=== PATIENT | female | born 1980 | race Caucasian/White ===

== ENCOUNTER 2016-11-08 10:06 | Outpatient (CLI) | payer OTHER | END 2016-11-08 14:00 | disposition home or self-care (01) | LOC: NST SRH 10:06 → OB SRH 10:09 | PROC: 4A0HXCZ Measurement of Products of Conception, Cardiac Rate, External Approach (ICD-10-PCS; principal; 2016-11-08) | DX: Z03.79 Encounter for other suspected maternal and fetal conditions ruled out (principal); Z3A.33 33 weeks gestation of pregnancy ==

== ENCOUNTER 2016-12-20 12:56 | Outpatient (CLI) | payer OTHER ==
--- NOTE | 2016-12-20 15:06 | DIAGNOSTIC IMAGING REPORT ---
PROCEDURE: US OB RE-EVALUATION INDICATION: RE EVAL TECHNIQUE: Rae scale, color and spectral Doppler images of the gravid uterus. COMPARISON: OB ultrasound 09/26/2016 FINDINGS: Single intrauterine with vertex presentation and right posterior placenta. Heart rate 143 bpm. DARLENE measures 13.6 cm (55th percentile) . Cervix not well visualized. Elevated cord ratios between 3.31 and 2.96. BPD 9.4 cm, 38 weeks 2 days; head circumference 33.5 cm, 38 weeks 2 days; abdominal circumference 37.5 cm, 41 weeks 3 days; femur length 7.5 cm, 38 weeks 1 day. Composite age 39 weeks, [place] 12/27/2016. Estimated weight 3953 g plus/minus 593 g (8.71 pounds). IMPRESSION: 1. Single live intrauterine , vertex, 39 weeks 2. [place] 12/27/2016, normal interval growth 3. Estimated weight 3953 g plus/minus 593 g (8.71 pounds). 4. Abdominal circumference 98th percentile 5. Elevated cord ratios.
== END 2016-12-20 23:00 ==
LOC: US SRH 12:56
DX: Z34.93 Encounter for supervision of normal pregnancy, unspecified, third trimester (principal); Z3A.39 39 weeks gestation of pregnancy

== ENCOUNTER 2016-12-21 18:10 | Outpatient (CLI) | payer OTHER | END 2016-12-21 19:05 | disposition home or self-care (01) | LOC: OBC SRH 18:10 → OB SRH 18:12 → OBC SRH 19:05 | PROC: 4A0HXCZ Measurement of Products of Conception, Cardiac Rate, External Approach (ICD-10-PCS; principal; 2016-12-21) | DX: O36.63X0 Maternal care for excessive fetal growth, third trimester, not applicable or unspecified (principal); O26.23 Pregnancy care for patient with recurrent pregnancy loss, third trimester; O09.523 Supervision of elderly multigravida, third trimester; Z3A.39 39 weeks gestation of pregnancy | CPT/HCPCS: 40003; 40016 ==

== ENCOUNTER 2016-12-27 21:13 | Outpatient (CLI) | payer OTHER | END 2016-12-27 22:45 | disposition home or self-care (01) | LOC: OBC SRH 21:13 → OB SRH 21:15 → OBC SRH 22:45 | PROC: 4A0HXCZ Measurement of Products of Conception, Cardiac Rate, External Approach (ICD-10-PCS; principal; 2016-12-27) | DX: O47.1 False labor at or after 37 completed weeks of gestation (principal); Z3A.39 39 weeks gestation of pregnancy ==

== ENCOUNTER 2016-12-30 00:23 | Outpatient (CLI) | payer OTHER ==
[2016-12-31] MEDS ORDERED: PRENATAL1 TAB PO (01:16)
[2016-12-31] MEDS ORDERED: ASPIRIN CHILDRE81 MG PO (01:17)
[2016-12-31] MEDS ORDERED: ACID REDUCER M150 MG PO (01:18)
[2016-12-31] MEDS ORDERED: SERTRALINE HCL25 MG PO (01:18)
== END 2016-12-30 01:50 | disposition home or self-care (01) ==
LOC: OBC SRH 00:23 → OB SRH 00:27 → OBC SRH 01:50
PROC: 4A0HXCZ Measurement of Products of Conception, Cardiac Rate, External Approach (ICD-10-PCS; principal; 2016-12-30)
DX: O47.1 False labor at or after 37 completed weeks of gestation (principal); O48.0 Post-term pregnancy; Z3A.40 40 weeks gestation of pregnancy

== ENCOUNTER 2016-12-30 09:05 | Outpatient (CLI) | payer OTHER ==
[2016-12-31] MEDS ORDERED: PRENATAL1 TAB PO (01:16)
[2016-12-31] MEDS ORDERED: ASPIRIN CHILDRE81 MG PO (01:17)
[2016-12-31] MEDS ORDERED: SERTRALINE HCL25 MG PO (01:18)
[2016-12-31] MEDS ORDERED: ACID REDUCER M150 MG PO (01:18)
== END 2016-12-30 12:30 | disposition home or self-care (01) ==
LOC: OBC SRH 09:05 → OB SRH 09:10 → OBC SRH 12:30
PROC: 4A0HXCZ Measurement of Products of Conception, Cardiac Rate, External Approach (ICD-10-PCS; principal; 2016-12-30)
DX: O47.1 False labor at or after 37 completed weeks of gestation (principal); O48.0 Post-term pregnancy; Z3A.40 40 weeks gestation of pregnancy; O09.511 Supervision of elderly primigravida, first trimester

== ENCOUNTER 2016-12-30 14:51 | Inpatient (IN) | payer OTHER ==
[~2016-12-30] VITALS: Ht 154.9 cm; Wt 99.3 kg
[2016-12-31] VITALS (12 sets, daily range): BP systolic 104–136; BP diastolic 53–84
[2016-12-31] MEDS ORDERED: PRENATAL1 TAB PO (01:16)
[2016-12-31] MEDS ORDERED: ASPIRIN CHILDRE81 MG PO (01:17)
[2016-12-31] MEDS ORDERED: ACID REDUCER M150 MG PO (01:18)
[2016-12-31] MEDS ORDERED: SERTRALINE HCL25 MG PO (01:18)
--- NOTE | 2016-12-31 07:45 | OPERATIVE REPORT ---
DATE OF SURGERY: SURGEON: Jonna Quintanilla MD BELT WORKER: Timmy Stephens MD PREOPERATIVE DIAGNOSES: 1. This is a 36-year-old, G4, P0 at 40-1/7 weeks gestation. 2. Arrest of dilatation at 9 cm x4 hours 3. Non-reassuring heart tracing 4. Meconium 5. Rupture of membranes for 17 hours 6. Chorioamnionitis POSTOPERATIVE DIAGNOSES: 1. This is a 36-year-old, G4, P0 at 40-1/7 weeks gestation. 2. Arrest of dilatation at 9 cm x4 hours 3. Non-reassuring heart tracing 4. Meconium 5. Rupture of membranes for 17 hours 6. Chorioamnionitis 7. A 7 pound 12 ounce 3.525 kg female with Apgars of 3, 3, and 8 at 1, 5, and 10 minutes respectively. PROCEDURE PERFORMED: 1. Primary low segment transverse ANESTHESIA: Epidural FLUIDS: 1300 mL of lactated Ringer's. ESTIMATED BLOOD LOSS: 800 mL URINE OUTPUT: 300 mL and it was clear at the end of procedure despite being nia at the start of the procedure. COMPLICATIONS: None. INDICATIONS: This is a 36-year-old, G4, P0 at 40-1/7 weeks gestation who arrived with SROM and very slowly progressed to 9 cm and then has experienced arrest of descent. The has had intermittent late and deep variables throughout the entire labor process that have become worse and now has tachycardia. We are unable to start Pitocin because of the non-reassuring heart tones. SURGICAL FINDINGS: Female in occiput posterior position. Thick meconium at amniotomy. Apgars 3, 3, and 8 at 1, 5 and 10 minutes respectively. Weight 3.525 kilograms, normal tubes and ovaries, uterus has fibroids. SURGICAL TECHNIQUE: After assuring informed consent, the patient was taken to the operating room and the epidural bolus was administered. The patient was placed in the dorsal supine position with a leftward tilt. The abdomen was prepped and draped in normal sterile fashion. A Pfannenstiel skin incision was made with the scalpel and carried through to the level of the fascia. The fascia incision was extended bilaterally with Roblero scissors. The fascial incision was then grasped with Darius clamps, elevated, and bluntly and sharply dissected superiorly and inferiorly from the rectus muscles. The rectus muscles were then in the midline and the peritoneum was bluntly entered. The peritoneal incision was extended superiorly and inferiorly with good visualization of the bladder. The bladder blade was then inserted and vesicouterine peritoneum was identified, grasped with pickups and entered sharply with scissors. This incision was then extended laterally and a bladder flap was created. The bladder was retracted using the bladder blade. The lower uterine segment was incised in a transverse fashion with a scalpel and extended bilaterally. The bladder blade was removed and the infant's head was delivered atraumatically. The cord was clamped and cut. This infant was handed off to the coordinate measuring machine technician. Cord blood gas was sent. We are unable to obtain cord blood gases. Placenta was then removed manually and the uterus was exteriorized and cleared of all clots. The uterine incision was repaired with 0 Vicryl in a running locking fashion. A second layer of 0-Vicryl was used to obtain excellent hemostasis. The cul-de-sac was cleared of clots and the uterus was returned to the abdomen. The fascia was closed with 0 Vicryl in a running fashion. The subcutaneous space was closed with 3-0 Vicryl. The skin was closed with jayce. The patient tolerated the procedure well. Needle and sponge counts were correct x3. One gram of Ancef was given prior to the procedure. DISPOSITION: The patient tolerated the procedure well and was transferred to the recovery room in stable condition.
--- NOTE | 2016-12-31 15:34 | DIAGNOSTIC IMAGING REPORT ---
PROCEDURE: XR CHEST 1 VIEW INDICATION: COUGH, TEMPERATURE 102.5 TECHNIQUE: Portable AP view 03:12 p.m. COMPARISON: None. FINDINGS: Lungs are clear. Heart size is borderline Thorax is normal. IMPRESSION: 1. Lungs clear, heart size borderline
[2017-01-01 00:30] VITALS: BP 114/68
[2017-01-01 04:30] VITALS: BP 119/72
[2017-01-01 09:14] VITALS: BP 129/78
[2017-01-01 13:50] VITALS: BP 122/70
[2017-01-01 16:00] VITALS: BP 127/76
[2017-01-02 00:18] VITALS: BP 112/71
[2017-01-02 04:30] VITALS: BP 118/75
[2017-01-02 08:29] VITALS: BP 117/78
[2017-01-02 12:35] VITALS: BP 123/72
[2017-01-02 15:45] VITALS: BP 127/89
[2017-01-03 00:15] VITALS: BP 116/71
[2017-01-03 03:35] VITALS: BP 121/75
[2017-01-03 09:27] VITALS: BP 118/62
[2017-01-03 16:40] VITALS: BP 120/85
[2017-01-03 23:48] VITALS: BP 120/79
[2017-01-04 06:30] VITALS: BP 134/80
[2017-01-04 09:23] VITALS: BP 125/84
[2017-01-04 13:14] VITALS: BP 118/74
[2017-01-04] MEDS ORDERED: OXYCODONE/ACETA1 TA1 PO (14:10)
--- NOTE | 2017-01-04 17:09 | Provider's Discharge Care Plan ---
Problem, Goal, Plan Problem List 1. delivery delivered Goals: Improved health/wellness Instructions: Follow up as directed 2. Endometritis Goals: Improved health/wellness, Therapeutic intervention Instructions: Follow up as directed, Take meds as directed 3. Anemia Goals: Improved health/wellness, Therapeutic intervention Instructions: Follow up as directed, Take meds as directed 4. Reactive airway disease Goals: Improved health/wellness, Therapeutic intervention Instructions: Follow up as directed, Take meds as directed
[2017-01-04] MEDS ORDERED: vantin PO (17:16)
[2017-01-04] MEDS ORDERED: ALBUTEROL HFA60 DOSE IN (17:17)
[2017-01-04] MEDS ORDERED: DOCUSATE SODIU100 MG PO (17:18)
[2017-01-04] MEDS ORDERED: IBUPROFEN200 M1 PO (17:18)
[2017-01-04] MEDS ORDERED: FERROUS SULFATE PO (17:19)
[2017-01-04 18:15] VITALS: BP 125/72
--- NOTE | 2017-01-17 20:44 | DISCHARGE SUMMARY ---
ADMIT DATE: 12/30/2016 DISCHARGE DATE: 01/04/2017 ADMISSION DIAGNOSIS: 1. Include 36-year-old G4, P0, at 40 weeks gestation, presenting with spontaneous rupture of membranes, in early labor, with intermittent deep decelerations resolving with repositioning DISCHARGE DIAGNOSES: 1. Includes 36-year-old G4 P0, now 1, delivered at 40 and 1/7 weeks gestation via primary secondary to intolerance of labor 2. Chorioamnionitis 3. Spontaneous rupture of membranes x17 hours 4. Endometritis 5. Anemia 6. The patient developed a cold while in the hospital with reactive airway disease BRIEF HISTORY: This is a 36-year-old G4, P0 at 40 weeks gestation, presenting with spontaneous rupture of membranes, in early active labor. She had been leaking for a couple hours with clear fluid initially on presentation. Contractions are getting more frequent and stronger progressively. HOSPITAL COURSE: The patient was admitted to the hospital, monitored and treated expectantly. had initially some intermittent decelerations, which seemed to resolve with positioning. As the labor progressed, started having recurrent decelerations and mother of child had protracted labor. Due to the decelerations, we were unable to start Pitocin and it was decided that emergent was indicated. took place without any complications. Mother of child developed endometritis after the and was treated with IV antibiotics for several days. The placenta did come back showing chorioamnionitis, as well as mild funisitis. The patient also had anemia and was started on Colace during her hospitalization. The patient developed a cold during her hospitalization and had wheezing on examination that improved with albuterol. PHYSICAL EXAMINATION: At the time of discharge: VITAL SIGNS: Stable. GENERAL: This is a healthy-appearing female sitting in bed in no apparent distress. HEENT: Head is atraumatic, normocephalic. LUNGS: Clear to auscultation bilaterally. HEART: S1, S2, regular rate and rhythm. No S3, S4, gallops, or rubs. There is a 2/6 systolic murmur, increased at the base. ABDOMEN: Soft, nontender, nondistended without hepatosplenomegaly. Bowel sounds are active. Uterus is U-3 with tenderness that is all but resolved. EXTREMITIES: There is no peripheral edema. SKIN: Incision is clean, dry, intact and healing well. DISCHARGE INSTRUCTIONS/MEDICATIONS: Discharge plan: The patient was discharged to home with instructions to follow up with me within 3-5 days. Activity: No heavy lifting for 6 weeks. Diet: Regular. Medications: Colace 100 mg p.o. b.i.d., ferrous sulfate 325 mg p.o. b.i.d., Vantin 200 mg p.o. b.i.d. x10 days, albuterol inhaler 2 puffs inhaled q.4 hours p.r.n., ibuprofen 400 mg p.o. q.4 hours p.r.n. pain, oxycodone/acetaminophen 5/ 325 mg 1-2 tablets p.o. q.4 hours p.r.n. severe pain.
== END 2017-01-04 20:00 | disposition home or self-care (01) | DRG 540 ==
LOC: OBC SRH 14:51 → OB SRH 15:37 → OBC SRH 15:45 → OB SRH 15:56
PROVIDERS: ADMIT Family Medicine
PROC: 10D00Z1 Extraction of Products of Conception, Low, Open Approach (ICD-10-PCS; principal; 2016-12-31 05:30)
DX: O76 Abnormality in fetal heart rate and rhythm complicating labor and delivery (principal); Z37.0 Single live birth; O42.02 Full-term premature rupture of membranes, onset of labor within 24 hours of rupture; O75.3 Other infection during labor; N71.0 Acute inflammatory disease of uterus; O62.1 Secondary uterine inertia; O77.0 Labor and delivery complicated by meconium in amniotic fluid; O69.81X0 Labor and delivery complicated by cord around neck, without compression, not applicable or unspecified; O48.0 Post-term pregnancy; Z3A.40 40 weeks gestation of pregnancy
CPT/HCPCS: 40011; 50002; 60001; 82146; 83411; 83475; 83526; 84038; 90001; 90004; 90065; 90074; 90131; 90155; 90309; 90469; 90470; 90984; 91004; 91162; 91163; 91643; 92560; 92630; 95059